=== PATIENT | female | born 1940 | race Caucasian/White ===

== ENCOUNTER 2018-08-20 06:36 | Inpatient (IN) | payer MEDICARE, BC ==
[2018-08-06 11:13] LABS: ABSOLUTE EOSINOPHILS 0.2 thou/uL (0.0-0.7); ABSOLUTE MONOCYTES 0.4 thou/uL (0.0-1.2); ABSOLUTE NEUTROPHILS 3.1 thou/uL (1.6-8.1); EOSINOPHILS 4.4 %; HEMATOCRIT 31.4 % (37.0-47.0); HEMOGLOBIN 10.2 gm/dL (12.0-15.0); LYMPHOCYTES 20.8 %; MCH 27.6 pg (26.0-34.0); MCHC 32.5 g/dL (28.0-37.0); MCV 84.8 fL (80.0-100.0); MONOCYTES 8.1 %; MPV 7.7 fl. (7.2-11.1); NUCLEATED RBCS 0 /100WBC; PLATELET COUNT* 228 thou/uL (150-400); POLYS 65.7 %; RBC 3.71 mil/uL (4.20-5.00); RDW-CV 16.4 % (10.5-14.5); WBC 4.7 thou/uL (4.0-11.0)
[2018-08-06 11:21] LABS: APTT 28.2 Seconds (25.0-31.3); PROTIME 10.7 Seconds (9.20-11.50)
[2018-08-06 11:25] LABS: ALBUMIN 2.8 g/dL (3.4-5.0); CREATININE 0.8 mg/dL (0.6-1.3); POTASSIUM 3.9 mmol/L (3.5-5.1); TOTAL BILIRUBIN 0.2 mg/dL (<0.1-1.0); TOTAL PROTEIN 6.2 g/dL (6.4-8.2)
[2018-08-06 12:44] LABS: ESR (SEDRATE) 45 mm/hr (0-30)
--- NOTE | 2018-08-06 13:16 | EKG ---
[place] [address] ELECTROCARDIOGRAM REPORT Name: SAM SEXTON Room: PRE IN [facility]#: [id number] Admission: Attend Phys: Paxton Malin Discharge: Date of : 36 Report #: [id number] THIS REPORT FOR: //name// [facility] Test Date: 2018-08-06 Test Time: 10:34:34 Pat Name: SAM SEXTON Department: Room: Gender: F Store Sales Consultant: MADYSON : 1940 Requested By: Tai Bess Order Number: [id number] Reading MD: Jaxon Jade Measurements Intervals [place] Rate: 63 P: 30 MD: 179 QRS: -28 QRSD: 97 T: -1 QT: 396 QTc: 406 Interpretive Statements Sinus rhythm Probable left ventricular hypertrophy Borderline T abnormalities, inferior leads Compared to ECG 02/06/2017 09:19:26 Ventricular premature complex(es) no longer present Electronically Signed On 08-06-2018 13:16:39 CDT by Jaxon Jade [email or web address] <ELECTRONICALLY SIGNED> By: Jaxon Jade MD, [facility] 08/06/18 1316 [id number] Jaxon Jade MD, FACC /EPI
[~2018-08-20] VITALS: Ht 167.6 cm; Wt 77.6 kg
[~2018-08-20 06:36] MED LIST: B-12 COMPL1000 MCG/1 IM; CALCIUM CITRAT1 EAC7 PO; COLACE100 MG PO; NAPROSYN500 MG PO; OXYCODONE HCL 55 MG PO; SYNTHROID100 MCG PO; TRAMADOL 50 MG50 MG PO; TYLENOL325 MG PO; XARELTO10 MG PO; ZANTAC 150MG T150 MG PO; [UNRECOGNIZED DRUG - OTHER] PO
[2018-08-20 12:09] VITALS: BP 136/61
[2018-08-20 19:45] VITALS: BP 99/61
[2018-08-21 00:35] VITALS: BP 100/59
[2018-08-21 04:13] VITALS: BP 136/83
[2018-08-21 04:56] LABS: HEMATOCRIT 31.5 % (37.0-47.0); HEMOGLOBIN 10.1 gm/dL (12.0-15.0)
[2018-08-21 12:28] VITALS: BP 125/75
[2018-08-21 15:36] VITALS: BP 154/83
[2018-08-21 20:00] VITALS: BP 145/38
[2018-08-22 05:12] LABS: HEMATOCRIT 30.5 % (37.0-47.0)
[2018-08-22 15:28] VITALS: BP 133/73
[2018-08-22 20:00] VITALS: BP 117/62
[2018-08-23 07:48] VITALS: BP 114/70
[2018-08-23] MEDS ORDERED: OXYCODONE HCL 55 MG PO (08:14)
[2018-08-23] MEDS ORDERED: ELIQUIS5 MG PO (08:14)
[2018-08-23] MEDS ORDERED: DULCOLAX5 MG PO (08:14)
[2018-08-23] MEDS ORDERED: CELEBREX 200 M200 M1 PO (08:14)
[2018-08-23] MEDS ORDERED: ASPIRIN325 PO (08:15)
[2018-08-23 08:52] VITALS: BP 114/70
== END 2018-08-23 12:15 | DRG 470 ==
LOC: M.PRE 06:36 → M.TBA 10:39 → M.ORTHSURG 10:39 → M.2W 11:53 → M.TBA 11:53 → M.PRE 13:21 → M.ORTHSURG 17:04
PROVIDERS: Orthopaedic Surgery; ADMIT Internal Medicine
PROC: 0SRC0J9 Replacement of Right Knee Joint with Synthetic Substitute, Cemented, Open Approach (ICD-10-PCS; principal; 2018-08-20)
DX: M17.11 Unilateral primary osteoarthritis, right knee (principal); Z96.652 Presence of left artificial knee joint; E03.9 Hypothyroidism, unspecified; K21.9 Gastro-esophageal reflux disease without esophagitis; R53.81 Other malaise; Z90.49 Acquired absence of other specified parts of digestive tract; Z88.1 Allergy status to other antibiotic agents; Z98.42 Cataract extraction status, left eye; Z98.41 Cataract extraction status, right eye